=== PATIENT | female | born 1950 | race African-American/Black ===

== ENCOUNTER 2020-09-13 16:25 | Inpatient (IN) | payer MEDICARE, MEDICAID, SELFPAY ==
[2020-09-13] VITALS (16 sets, daily range): BP systolic 114–152; BP diastolic 74–120; PULSE 78–88; RESP 16–27; TEMP 36.7–36.9; O2SAT 88–100
--- NOTE | ~2020-09-13 | US_ITS ---
EXAMINATION: US venous doppler [facility] DATE: 09/14/2020 13:40 INDICATION: Pulmonary embolism TECHNIQUE: Grayscale ultrasound images without and with compression and Doppler ultrasound images of the bilateral lower extremity veins were obtained. COMPARISON: None. FINDINGS: The visualized portions of right common femoral vein, profunda (deep) femoral vein, femoral vein, pop liteal vein, posterior tibial veins, peroneal veins, gastrocnemius vein and greater saphenous vein ou tflow are patent. The visualized portions of left common femoral vein, profunda femoral vein, femoral vein, popliteal v ein, posterior tibial veins, peroneal veins, gastrocnemius vein and greater saphenous vein outflow ar e patent. IMPRESSION: 1. No deep venous thrombosis in either lower limb. Reviewed, dictated and finalized at location A. [employer]
--- NOTE | ~2020-09-13 | XR_ITS ---
XR chest 1V portable DATE: 09/13/2020 17:04 INDICATION: Shortness of breath TECHNIQUE: Portable AP chest on 09/13/2020 at 1659 hours COMPARISON: 02/15/2018 AP chest FINDINGS: Normal heart size. There is aortic arch calcification. No pulmonary vascular congestion or pleural effusion or pneumothorax. Mild infiltrate or atelectasis is suggested in both lower lung zones. Diffuse idiopathic skeletal hyperostosis of the thoracic spine. IMPRESSION: Mild infiltrate or atelectasis in the lower lung zones Reviewed, dictated and finalized at location A. [employer]
--- NOTE | ~2020-09-13 | CT_ITS ---
EXAMINATION: CTA chest PE protocol DATE: 09/13/2020 18:08 INDICATION: Low oxygen saturation. Shortness of breath. TECHNIQUE: Computed tomography angiography (CTA) of the chest was performed with 100 mL Omnipaque-350 intravenous contrast timed to evaluate the pulmonary arteries. Coronal maximum intensity projection 3D-reconstructions were created by the technologist. Automated exposure control and iterative reconst ruction technique were employed. Exam dose: 751.39 mGy-cm total exam DLP. COMPARISON: 09/13/2020 portable AP chest FINDINGS: There is diagnostic contrast enhancement of the pulmonary arteries. Some intraluminal filling defects consistent with pulmonary emboli are identified in the right lower lobe and right upper lobe. The peripheral pulmonary arteries are not optimally evaluated due to motio n. No thoracic aortic aneurysm or dissection. Normal heart size. No pericardial or pleural effusion. No hilar or mediastinal mass lesion. Mild bilateral hilar lymph node prominence is likely reactive. N o mediastinal lymphadenopathy. Mild patchy infiltrate and/atelectasis is noted in the lower lobes and left upper lobe primarily. Status post cholecystectomy. Degenerative changes of the thoracic spine. IMPRESSION: Right upper and lower lobe pulmonary emboli Nonspecific mild patchy bilateral pulmonary infiltrates Reviewed, dictated and finalized at Location [facility]. Reviewed, dictated and finalized at location A. OP ENGINEER
--- NOTE | 2020-09-13 16:31 | ECG_ITS ---
Measurements Intervals [place] Rate: 79 P: NE: 0 QRS: -13 QRSD: 82 T: 73 QT: 396 QTc: 456 Interpretive Statements SINUS RHYTHM LOW QRS VOLTAGE IN PRECORDIAL LEADS BASELINE ARTIFACT- I, II, III, AVR, AVL, AVF, V1-V6 BORDERLINE ECG Electronically Signed On 09-14-2020 8:19:53 STAMP PAD FINISHER by Alfred Fallon D.O.
[2020-09-13 16:51] LABS: Basophils Percent Auto 0.3 % (0.2-1.2); Eosinophils Percent Auto 0.3 % (0-4.4); Hematocrit 33.3 % (37.0-47.0); Hemoglobin 11.8 g/dL (12.0-15.0); Immature Granulocyte Absolute 0.03 K/mm3 (0.00-0.031); Immature Granulocyte Percent A 0.5 % (0-0.5); Lymphocytes Absolute Auto 2.65 K/mm3 (0.9-3.2); Lymphocytes Percent Auto 42.9 % (18.3-44.2); Mean Corpuscular HGB Conc 35.4 g/dl (32-36); Mean Corpuscular Hemoglobin 29.3 pg (26-34); Mean Corpuscular Volume 82.6 fl (80-100); Mean Platelet Volume 9.9 fl (7.4-10.4); Monocytes Absolute Auto 0.6 K/mm3 (0.1-0.6); Monocytes Percent Auto 9.2 % (2.6-8.5); Neutrophils Absolute Auto 2.9 K/mm3 (1.3-6.7); Neutrophils Percent Auto 46.8 % (45.5-73.1); Platelet Count Result 260 k/mm3 (150-375); Red Blood Count 4.03 M/mm3 (4.2-5.4); Red Cell Distribution Width 13.8 % (11.5-14.5); White Blood Count 6.2 K/mm3 (4.5-10.0)
--- NOTE | 2020-09-13 16:54 | ED.SOB ---
HPI - SOB/Dyspnea General Chief Complaint: Shortness of Breath/Dyspnea Stated Complaint: sob, covid + Time Seen by Provider: 09/13/20 16:45 Source: EMS Mode of arrival: EMS Limitations: dementia History of Present Illness HPI Narrative: PAtient is a 69 year old female who presents for evaluation of low oxygen saturation. Patient tested positive for COVID 08/26/20. EMS reports patient's oxygen saturation was 70% on room air. Patient is oriented to person but unable to give history. EMS reports this is her baseline. Related Data Home Medications Medication Instructions Recorded Confirmed acetaminophen 650 mg PO Q4H PRN MDD 3000 09/13/20 09/14/20 divalproex 250 mg PO BID 09/13/20 09/13/20 docusate sodium 100 mg PO DAILY 09/13/20 09/13/20 donepezil 10 mg PO HS 09/13/20 09/13/20 ergocalciferol (vitamin D2) 1,250 mcg PO WEEKLY 09/13/20 09/13/20 lisinopril-hydrochlorothiazide 1 tablet PO DAILY 09/13/20 09/13/20 melatonin 3 mg PO HS 09/13/20 09/13/20 memantine 21 mg PO DAILY 09/13/20 09/13/20 olanzapine 5 mg PO HS 09/13/20 09/13/20 ondansetron 4 mg PO Q4H PRN 09/13/20 09/13/20 potassium chloride 10 meq PO DAILY 09/13/20 09/13/20 sertraline 25 mg PO DAILY 09/13/20 09/13/20 tramadol 50 mg PO DAILY 09/13/20 09/13/20 vitamin B complex [B 1 tablet PO DAILY 09/13/20 09/13/20 Complex-Vitamin B12] Allergies Allergy/AdvReac Type Severity Reaction Status Date / Time atropine Allergy Unknown Unknown Verified 09/13/20 22:27 hyoscyamine Allergy Unknown Unknown Verified 09/13/20 22:27 phenobarbital Allergy Unknown Unknown Verified 09/13/20 22:27 scopolamine Allergy Unknown Unknown Verified 09/13/20 22:27 Review of Systems Review of Systems: ROS unobtainable: Yes unobtainable due to medical condition PMFSH Past Medical History Medical History (Updated 09/14/20 @ 18:23 by Kori Wharton MD) Dementia Depression Hyperlipidemia Hypertension Seizure Surgical History Surgical History Surgical history unknown Social History Social History (Updated 09/13/20 @ 22:20 by Zulma Cleveland NP) Social History: patient is single and it is reported that the patient has no children. Her next of kin listed as a contact lens technician Rachel and VAMSHI Gaines. Smoking status: Never smoker Alcohol intake: never Substance use: never Gender identity (if verbalized by the patient): Female Spiritual care concerns: No Exam Const: General: no acute distress, alert and ill appearing HENMT: Head: normocephalic and atraumatic Face and sinus: face symmetric Eyes: EOM: EOMs intact bilaterally Resp: Effort & Inspection: normal respiratory effort and no retractions Auscultation: clear to auscultation bilaterally Cardio: Rate: regular rate Rhythm: regular rhythm Heart sounds: no murmurs GI: GI Palp: Yes Soft to palpation, No Tenderness to palpation present (GI) and No Guarding due to palpation present (GI) Auscultation: normal bowel sounds Neuro: General: moves all extremities Psych: Mental Status: mental status grossly normal Affect: normal affect Course Consultations Consultation #1: I discussed case with Zulma Cleveland who accepts admission for PE Date: 09/13/20 Time: 18:00 Vital Signs Vital signs: Vital Signs Temperature 98.4 F 09/13/20 16:25 Pulse Rate 79 09/13/20 16:25 Respiratory Rate 17 09/13/20 16:25 Pulse Oximetry 88 L 09/13/20 16:25 Temperature 97.3 F L 09/14/20 16:00 Pulse Rate 78 09/14/20 16:00 Respiratory Rate 20 09/14/20 16:00 Blood Pressure 122/82 09/14/20 16:00 Pulse Oximetry 100 09/14/20 16:00 MDM - SOB/Dyspnea Lab Data Attestation: I reviewed the patient's lab results. Result diagrams: 09/14/20 06:11 09/14/20 06:11 Labs: Lab Results 09/13/20 09/13/20 09/13/20 Range/Units 16:45 16:45 16:45 WBC 6.2 (4.5-10.0) K/mm3 RBC 4.03 L (4.2-5.4) M/mm3
[2020-09-13 17:04] LABS: Anion Gap 4 mmol/L (8-16); Blood Urea Nitrogen 21 mg/dL (7-17); Calcium 9.5 mg/dL (8.4-10.2); Carbon Dioxide 31 mmol/L (22-30); Chloride 106 mmol/L (98-107); Estimated CRCL calculation 54 ml/min; Estimated Glomerular Filt Rate > 60; Glucose 99 mg/dL (65-105); Potassium 3.3 mmol/L (3.4-5.0); Sodium 141 mmol/L (137-145)
[2020-09-13 17:09] LABS: Partial Thromboplastin Time 20.2 SECONDS (22.3-36.8); Prothrombin Time 14.2 Seconds (11.1-14.7)
[2020-09-13 17:22] LABS: Alveolar/Arterial O2 Gradient 126.9 mmHg; Base Excess ABG 4.6 mEq/l (+/-2.0); Carboxyhemoglobin 0.3 % THb (0-2.0); Fractional Inspired Oxygen 28 %; HCO3 ABG 23.9 mEq/l (22.0-26.0); Methemoglobin ABG 0.2 %THb (0-1.5); Oxygen Content ABG 15.2 %vol (16.0-22.0); Oxygen Saturation ABG 91.7 % (95.0-100.0); Oxyhemoglobin 88.8 % THb (90.0-100.0); PO2 FiO2 Ratio Arterial Blood 1.68 %; Reduced Hemoglobin 10.7 %THb (0-5.0); Total Hemoglobin 12.2 g/dL (12.0-18.0)
[2020-09-13 17:24] LABS: Device NASAL CANNULA; PCO2 ABG 21.8 mmHg (35.0-45.0); Site Drawn RIGHT BRACHIAL; pH ABG 7.658 (7.350-7.450)
[2020-09-13 17:40] LABS: Alanine Aminotransferase 26 U/L (4-35); Alkaline Phosphatase 97 U/L (38-126); Aspartate Amino Transferase 40 U/L (14-36); Bilirubin,Total 0.4 mg/dL (0.2-1.3); Lactic Acid Reflex 2.5 mmol/L (0.7-2.1)
[2020-09-13 17:52] LABS: NT Pro B Type Natriuretic Pept 117 PG/ML (5-100); Troponin I < 0.012 ng/mL (0.000-0.034)
--- NOTE | 2020-09-13 18:22 | PC.NURSE ---
spoke with rosie sanders related to permission for ct scan with contrast. denied allergy and stated, that the pt can tolerate it.
[2020-09-13 18:43] LABS: Glucose Point of Care 69 (65-105)
[2020-09-13] MEDS: DEXTROSE 50% 25 GM/50 ML SYRINGE (18:51)
[2020-09-13 18:52] LABS: Add Urine Microscopic? YES; Appearance Urine Clear (Clear); Bilirubin Urine Negative (Negative); Blood Urine Negative (Negative); Color Urine Straw (Yellow); Glucose Urine UA Negative (Negative); Ketones Urine Negative (Negative); Leukocyte Esterase Ur Negative LEU/UL (Negative); Mucus Urine Rare /lpf; Nitrate Urine Negative (Negative); Protein Urine 1+ mg/dL (Negative); Specific Grav Ur > 1.060 (1.001-1.035); WBC Urine 0-3 /hpf
[2020-09-13] MEDS: ENOXAPARIN 100 MG/ML SYRINGE 85 MG SUB-Q (19:01)
[2020-09-13 20:25] LABS: Reflex Lactic Acid Yes or No Add Lactic
[2020-09-13 21:03] LABS: Lactic Acid 2.2 mmol/L (0.7-2.1)
--- NOTE | 2020-09-13 21:58 | PC.NURSE ---
This patient, Patti Gaines, was admitted to [facility] S[facility] Room 310-01. Patient/family oriented to hospital policies and general routines including ID bracelet, bed and alarms, visiting hours, pain management, procedures, bathroom and other care routines, personal items, smoking policy, room service/diet, and visiting hours. Information on how to activate the Rapid Response Team has been discussed. Patient/Family are encouraged to report perceived risks to care and to ask questions if they do not understand what they are told or what they should do.
--- NOTE | 2020-09-13 22:03 | PM.IMHP ---
H&P: HPI History of Present Illness Date/Time: 09/13/20 22:03 Chief Complaint: Hypoxia Narrative: Patti Gaines is a 69 year old female who is from [facility]. Patient is unable to give any medical history. The patient came to emergency room to be to be evaluated from oxygen level. Patient tested positive for COVID on 08/26/2020. Patient's oxygen level dropped down to 70 on room air today. She is only oriented to person and unable to give any history. When I entered the room the patient was singing and was not answering any questions. She does have a history of dementia and psychosis. Today her H&H is 10.8 and 33.3. Right upper lower lobe pulmonary emboli. Nonspecific mild patchy bilateral pulmonary. Chest x-ray was read as mild infiltrate or atelectasis in the lower lung zones. For the PE. She is also given D50 as her blood sugar was 69. Lactic acid 2.5 and 2.2. Potassium 3.3. Status on date of service of 09/13/2019 Review of Systems Review of Systems: Narrative: The patient is pleasantly seeing and is not answering questions. ROS unobtainable: Yes unobtainable due to mental status Constitutional: Constitutional: Reports as per HPI and Reports no additional constitutional complaints Eyes: Eyes: Reports as per HPI and Reports no additional eye complaints ENT: Reports system reviewed and no additional complaints, except as documented and Reports Normal hearing present Cardiovascular: Cardiovascular: Reports no additional cardiovascular complaints Respiratory: Respiratory: Reports no additional respiratory complaints and Reports no additional respiratory complaints Gastrointestinal: Gastrointestinal: Reports as per HPI Integumentary/Breasts: Skin/Breast: Reports as per HPI Neurologic: Reports as per HPI and Reports Normal hearing present Psychiatric: Psychiatric: Reports as per HPI Endocrine: Endocrine: Reports no additional endocrine complaints Hematologic/Lymphatic: Hematologic/Lymphatic: Reports no additional hematologic/lymphatic complaints Allergic/Immunologic: Allergic/Immunologic: Reports no additional allergic/immunologic complaints [facility] Past Medical History Medical History (Updated 09/13/20 @ 22:51 by Zulma Cleveland NP) Dementia Depression Hyperlipidemia Hypertension Seizure Surgical History Surgical History Surgical history unknown Social History Social History (Updated 09/13/20 @ 22:20 by Zulma Cleveland NP) Social History: patient is single and it is reported that the patient has no children. Her next of kin listed as a contact lens technician Rachel and VAMSHI Gaines. Smoking status: Never smoker Alcohol intake: never Substance use: never Gender identity (if verbalized by the patient): Female Spiritual care concerns: No Meds Home Medications and Allergies Home Medications Medication Instructions Recorded Confirmed Type acetaminophen 325 mg PO Q4H PRN MDD 3000 09/13/20 09/13/20 History divalproex 250 mg PO BID 09/13/20 09/13/20 History docusate sodium 100 mg PO DAILY 09/13/20 09/13/20 History donepezil 10 mg PO HS 09/13/20 09/13/20 History ergocalciferol (vitamin D2) 1,250 mcg PO WEEKLY 09/13/20 09/13/20 History lisinopril-hydrochlorothiazide 1 tablet PO DAILY 09/13/20 09/13/20 History melatonin 3 mg PO HS 09/13/20 09/13/20 History memantine 21 mg PO DAILY 09/13/20 09/13/20 History olanzapine 5 mg PO HS 09/13/20 09/13/20 History ondansetron 4 mg PO Q4H PRN 09/13/20 09/13/20 History potassium chloride 10 meq PO DAILY 09/13/20 09/13/20 History sertraline 25 mg PO DAILY 09/13/20 09/13/20 History tramadol 50 mg PO DAILY 09/13/20 09/13/20 History vitamin B complex [B 1 tablet PO DAILY 09/13/20 09/13/20 History Complex-Vitamin B12] Allergies Allergy/AdvReac Type Severity Reaction Status Date / Time atropine Allergy Unknown Unknown Verified 09/13/20 22:27 hyoscyamine Allergy Unknown Unknown Verif
[2020-09-13] MEDS: MELATONIN 3 MG TABLET PO (23:32)
[2020-09-13] MEDS: DONEPEZIL HCL 10 MG TABLET PO (23:32)
[2020-09-13] MEDS: POTASSIUM CHLORIDE 20 MEQ PACKET (FOR LIQUID) PO (23:40)
[2020-09-13 23:52] LABS: Glucose Point of Care 79 (65-105)
[2020-09-14] VITALS (10 sets, daily range): BP systolic 112–142; BP diastolic 60–107; PULSE 58–131; RESP 12–20; TEMP 36–36.7; O2SAT 93–100
[2020-09-14] MEDS: ENOXAPARIN 100 MG/ML SYRINGE 85 MG SUB-Q (06:08)
[2020-09-14 06:27] LABS: Glucose Point of Care 122 (65-105)
[2020-09-14 06:42] LABS: Basophils Percent Auto 0.3 % (0.2-1.2); Eosinophils Percent Auto 0.3 % (0-4.4); Hemoglobin 11.4 g/dL (12.0-15.0); Immature Granulocyte Absolute 0.04 K/mm3 (0.00-0.031); Immature Granulocyte Percent A 0.7 % (0-0.5); Lymphocytes Absolute Auto 2.63 K/mm3 (0.9-3.2); Lymphocytes Percent Auto 43.6 % (18.3-44.2); Mean Corpuscular HGB Conc 35.6 g/dl (32-36); Mean Corpuscular Hemoglobin 29.5 pg (26-34); Mean Corpuscular Volume 82.9 fl (80-100); Mean Platelet Volume 10.5 fl (7.4-10.4); Monocytes Absolute Auto 0.6 K/mm3 (0.1-0.6); Monocytes Percent Auto 10.4 % (2.6-8.5); Neutrophils Absolute Auto 2.7 K/mm3 (1.3-6.7); Neutrophils Percent Auto 44.7 % (45.5-73.1); Platelet Count Result 229 k/mm3 (150-375); Red Blood Count 3.86 M/mm3 (4.2-5.4)
[2020-09-14 07:12] LABS: Anion Gap 1 mmol/L (8-16); Blood Urea Nitrogen 19 mg/dL (7-17); Carbon Dioxide 31 mmol/L (22-30); Chloride 108 mmol/L (98-107); Estimated CRCL calculation 49 ml/min; Estimated Glomerular Filt Rate > 60; Glucose 100 mg/dL (65-105); Magnesium 1.9 mg/dL (1.6-2.3); Sodium 140 mmol/L (137-145)
[2020-09-14] MEDS: DIVALPROEX SODIUM 250 MG TABEC PO ×2 (10:15→17:47)
[2020-09-14] MEDS: lisinopriL 20 MG TABLET PO (10:15)
[2020-09-14] MEDS: MEMANTINE HCL XR 7 MG CAP 21 MG PO (10:15)
[2020-09-14] MEDS: DOCUSATE SODIUM 100 MG CAPSULE PO (10:16)
[2020-09-14] MEDS: VITAMIN B COMPLEX CAPSULE 1 CAP PO (10:16)
[2020-09-14] MEDS: traMADol HCL (*CRX) 50 MG TABLET PO (10:16)
[2020-09-14] MEDS: POTASSIUM CHLORIDE 10 MEQ TABLET.ER PO (10:16)
[2020-09-14] MEDS: SERTRALINE HCL 25 MG TABLET PO (10:16)
[2020-09-14] MEDS: hydroCHLOROthiazide 12.5 MG CAPSULE PO (10:16)
[2020-09-14] MEDS: FUROSEMIDE INJ 40 MG/4 ML VIAL IV PUSH (10:18)
--- NOTE | 2020-09-14 13:06 | PM.IMPN ---
Progress Note: A&P Assessment and Plan (1) Pulmonary emboli: Code(s): I26.99 - Other pulmonary embolism without acute cor pulmonale Status: Acute Assessment and Plan: Evidence of right upper and lower lobe PE on CTA; no evidence on heart strain on CTA imaging and negative trop and minimally elevated BNP. Patient was started on therapeutic Lovenox from the ED. Hypoxic on arrival, now tolerating RA. LE venous Doppler negative for DVT Will transition to Elquis tonight. Eliquis 10 mg BID x 7 days, then 5 mg BID thereafter If tolerating RA for 24 hours, likely discharge back to [place] for further care tomorrow Monitor overnight She will need follow up with PCP (2) Depression: Code(s): F32.9 - Major depressive disorder, single episode, unspecified Status: Chronic Assessment and Plan: Continue with sertraline. (3) Seizure: Code(s): R56.9 - Unspecified convulsions Status: Chronic Assessment and Plan: No acute issues Continue home medication (4) Hypertension: Code(s): I10 - Essential (primary) hypertension Status: Chronic Assessment and Plan: BP 110s sys Continue home antihypertensives (5) Hyperlipidemia: Code(s): E78.5 - Hyperlipidemia, unspecified Status: Chronic Assessment and Plan: Continue with home medication (6) Dementia: Code(s): F03.90 - Unspecified dementia without behavioral disturbance Status: Chronic Assessment and Plan: Appears at baseline Continue with home medications Subjective Date/time seen: 09/14/20 13:06 Interval history: Patient is a 69 yo F with history of dementia, HTN, and seizure disorder who is seen in follow up for PE. Patient is alert and oriented to herself for me today; per Triage note, baseline is A&Ox0. She provides little to no input in her current symptoms, but when questioned, she denies SOB or chest pain. Nursing reports patient recently weaned to RA today and has been tolerating this okay. Further history unobtainable from patient. Review of Systems Review of Systems: ROS unobtainable: Yes unobtainable due to mental status Exam Narrative: Exam Narrative: General: Patient resting supine in bed in no acute distress. HEENT: Normocephalic, EOMI, oral mucosa moist. Cardiovascular: Rate and rhythm are regular. No notable murmur, rub, or gallop. Tele shows normal sinus rhythm, occasional PVCs vs artifact appreciated. Respiratory: Lungs clear to auscultation anterolateral lung blount. Non-labored breathing. Sat 100% on RA at time of visit Abdomen: Soft, non-tender, non-distended, bowel sounds present. Extremities: Peripheral pulses intact. No edema. NTTP b/l calves Neuro: No focal neurological deficits. Speech is clear. Objective Data Vital Signs Vital Signs: Last Vital Signs Temp 97.0 F L 09/14/20 12:00 Pulse 64 09/14/20 12:57 Resp 16 09/14/20 12:57 BP 117/69 09/14/20 12:00 Pulse Ox 100 09/14/20 12:57 Intake/Output Intake/Output: Intake & Output 09/11/20 09/12/20 09/13/20 09/14/20 23:59 23:59 23:59 23:59 Intake Total 1000 Balance 1000 Meds/Results Medications: Active Medications Generic Name Dose Route Start Last Admin Trade Name Freq PRN Reason Stop Dose Admin Acetaminophen 650 mg 09/13/20 22:55 Acetaminophen 325 Mg Tablet PO Q4H PRN Fever Or Pain Albuterol 6 puff 09/13/20 18:52 Albuterol Sulfate (*Sp) Aerosol 1 Puff INHALATION QIDRT PRN Shortness Of Breath Apixaban 10 mg 09/14/20 21:00 Apixaban 5 Mg Tablet PO 09/21/20 09:01 Q12HR KINSEY Apixaban 5 mg 09/21/20 21:00 Apixaban 5 Mg Tablet PO Q12HR KINSEY Dextrose 12.5 gm 09/13/20 18:59 Dextro
[2020-09-14] MEDS: DONEPEZIL HCL 10 MG TABLET PO (21:18)
[2020-09-14] MEDS: MELATONIN 3 MG TABLET PO (21:18)
[2020-09-14] MEDS: APIXABAN 5 MG TABLET 10 MG PO (21:18)
[2020-09-14 22:09] LABS: Glucose Point of Care 109 (65-105)
[2020-09-15 00:05] VITALS: BP 100/53; PULSE 100; RESP 20; TEMP 36.3; O2SAT 96
[2020-09-15 04:00] VITALS: BP 116/69; PULSE 65; RESP 18; TEMP 36.4; O2SAT 100
[2020-09-15 06:36] LABS: Hemoglobin 12.1 g/dL (12.0-15.0); Mean Corpuscular HGB Conc 34.6 g/dl (32-36); Mean Corpuscular Hemoglobin 28.9 pg (26-34); Mean Corpuscular Volume 83.7 fl (80-100); Mean Platelet Volume 10.1 fl (7.4-10.4); Platelet Count Result 252 k/mm3 (150-375); Red Blood Count 4.18 M/mm3 (4.2-5.4); Red Cell Distribution Width 14.3 % (11.5-14.5); White Blood Count 4.4 K/mm3 (4.5-10.0)
[2020-09-15 06:45] LABS: Anion Gap 5 mmol/L (8-16); Blood Urea Nitrogen 22 mg/dL (7-17); Carbon Dioxide 35 mmol/L (22-30); Chloride 107 mmol/L (98-107); Estimated CRCL calculation 45 ml/min; Estimated Glomerular Filt Rate 59; Glucose 103 mg/dL (65-105); Potassium 3.2 mmol/L (3.4-5.0); Sodium 147 mmol/L (137-145)
[2020-09-15 08:00] VITALS: BP 113/84; PULSE 65; PULSE 85; RESP 16; RESP 18; TEMP 36.4; O2SAT 100; O2SAT 95
[2020-09-15 08:43] LABS: Glucose Point of Care 100 (65-105)
[2020-09-15] MEDS: POTASSIUM CHLORIDE 10 MEQ TABLET.ER PO (09:22)
[2020-09-15] MEDS: DOCUSATE SODIUM 100 MG CAPSULE PO (09:22)
[2020-09-15] MEDS: VITAMIN B COMPLEX CAPSULE 1 CAP PO (09:22)
[2020-09-15] MEDS: APIXABAN 5 MG TABLET 10 MG PO (09:22)
[2020-09-15] MEDS: MEMANTINE HCL XR 7 MG CAP 21 MG PO (09:22)
[2020-09-15] MEDS: SERTRALINE HCL 25 MG TABLET PO (09:22)
[2020-09-15] MEDS: lisinopriL 20 MG TABLET PO (09:23)
[2020-09-15] MEDS: hydroCHLOROthiazide 12.5 MG CAPSULE PO (09:23)
[2020-09-15] MEDS: DIVALPROEX SODIUM 250 MG TABEC PO (09:24)
[2020-09-15] MEDS: traMADol HCL (*CRX) 50 MG TABLET PO (09:46)
[2020-09-15] MEDS: POTASSIUM CHLORIDE 20 MEQ PACKET (FOR LIQUID) PO (09:46)
[2020-09-15 12:00] VITALS: BP 111/88; PULSE 103; RESP 18; TEMP 36.6; O2SAT 96
--- NOTE | 2020-09-15 12:34 | PM.DS ---
DS: Admitting Diagnosis Admitting Diagnosis Admitting Diagnosis: Multiple PEs, hypoxia DS: Discharge Diagnosis Discharge Diagnosis (1) Pulmonary emboli: Code(s): I26.99 - Other pulmonary embolism without acute cor pulmonale Status: Acute Assessment and Plan: Evidence of right upper and lower lobe PE on CTA; no evidence on heart strain on CTA imaging and negative trop and minimally elevated BNP; Echo not indicated for above reasons. Patient was started on therapeutic Lovenox from the ED. Hypoxic on arrival, now tolerating RA for 24 hours. LE venous Doppler negative for DVT Continue Eliquis 10 mg BID x 7 days, then 5 mg BID thereafter discharge today F/u with PCP for further management (2) Depression: Code(s): F32.9 - Major depressive disorder, single episode, unspecified Status: Chronic Assessment and Plan: Continue with sertraline. (3) Seizure: Code(s): R56.9 - Unspecified convulsions Status: Chronic Assessment and Plan: No acute issues Continue home medication (4) Hypertension: Code(s): I10 - Essential (primary) hypertension Status: Chronic Assessment and Plan: BP 110s sys Continue home antihypertensives (5) Hyperlipidemia: Code(s): E78.5 - Hyperlipidemia, unspecified Status: Chronic Assessment and Plan: Continue with home medication (6) Dementia: Code(s): F03.90 - Unspecified dementia without behavioral disturbance Status: Chronic Assessment and Plan: Appears at baseline Continue with home medications DS: Summary Hospital Course Reason for hospitalization: Multiple PEs, hypoxia Hospital Course: Date of arrival: 09/13/20 Date of discharge: 09/15/20 Patient is a 69 yo F with a history of dementia, depression, seizure disorder, and HTN who presented to the ED from [facility] on 09/13 with reports of hypoxia on RA. EMS reports patient oxygen saturation was 70% on RA. She was placed on 15 L NRB mask en route to ED. She reportedly is A&Ox0 at baseline thus was not able to give any information. While in the ED, she as mildly hypoxic on RA and was placed on 2L O2 via NC. ABG was found to have pH of 7.658, pCO2 21.8, pO2 47.0, O2 sat 91.7%, with reduced Hgb 10.7%. CTA chest was performed and found evidence of right upper and lower lobe pulmonary emboli. Troponin level negative and BNP minimally elevated. She was started on therapeutic Lovenox in the ED. Patient admitted under this setting of multiple PEs. Please see H&P for further details. Patient was admitted to the hospitalist service for further management/treatment. She was transitioned to PO Eliquis on evening of 09/14. She was to do 10 mg Q12h for 7 days, then 5 mg Q12h thereafter. Given no evidence of right heart strain on CTA imaging, and negative troponin and essentially normal BNP, it was felt that Echo was not indicated at this time to further evaluate for heart strain. She was weaned to RA on 09/14 and continued to maintain adequate O2 sats for 24 hours. She had mild hypokalemia during her stay, which was replaced; she was to obtain BMP on 09/18 for further monitoring. Plan was for her to be discharged back to [place] for further care. Patient hemodynamically stable and in improved condition for discharge on 09/15 Status at Discharge Overall status at discharge: patient is progressing back to baseline Time Spent with Patient Time attestation: Total time spent providing and/or coordinating discharge services: Time spent: Greater than 30 minutes Exam Narrative: Exam Narrative: General: Patient resting supine in bed in no acute distress. HEENT: Normocephalic, EOMI, oral mucosa moist. Cardiovascular:
== END 2020-09-15 16:10 | DRG 176 ==
LOC: ANHED 19:04 → ANH3MEDSUR 09-14 07:05
PROVIDERS: Nurse Practitioner; Admitting Provider Internal Medicine; Emergency Provider General Practice; PCP Family Medicine; Visit Provider Physician Assistant
DX: I26.99 Other pulmonary embolism without acute cor pulmonale (principal); B94.8 Sequelae of other specified infectious and parasitic diseases; F32.9 Major depressive disorder, single episode, unspecified; F03.90 Unspecified dementia, unspecified severity, without behavioral disturbance, psychotic disturbance, mood disturbance, and anxiety; E78.5 Hyperlipidemia, unspecified; G40.909 Epilepsy, unspecified, not intractable, without status epilepticus; I10 Essential (primary) hypertension
CPT/HCPCS: 36415; 36600; 71045; 71275; 80048; 80076; 81001; 82375; 82728; 82805; 82948; 83050; 83605; 83735; 83880; 84443; 84484; 85025; 85027; 85610; 85730; 93005; 93970; 96372; 96374; 99291; A9270; J1650; J1940; J3480; Q9967

== ENCOUNTER 2020-09-17 09:50 | Emergency (ER) | payer MEDICARE, MEDICAID, SELFPAY ==
[2020-09-17] VITALS (46 sets, daily range): BP systolic 85–192; BP diastolic 46–175; PULSE 73–116; RESP 11–28; TEMP 36.1; O2SAT 95–100
--- NOTE | ~2020-09-17 | XR_ITS ---
XR chest 1V portable DATE: 09/17/2020 10:29 INDICATION: Shortness of breath. Pulmonary emboli. Transient alteration of awareness. TECHNIQUE: Portable upright AP chest on September 17, 2020 at 1031 hours COMPARISON: 09/13/2020 CT pulmonary scan FINDINGS: Normal heart size. No pulmonary infiltrate or consolidation, pleural effusion or pulmonary vascular congestion or pneumothorax is evident. Degenerative spurring of the thoracic spine. IMPRESSION: No active cardiac pulmonary disease Recent demonstration of right upper and lower lobe pulmonary emboli on 09/13/2020 CT pulmonary scan Reviewed, dictated and finalized at location A. I MAKER IMPRESSION: No active cardiac pulmonary disease Recent demonstration of right upper and lower lobe pulmonary emboli on CT pulmonary scan
--- NOTE | ~2020-09-17 | CT_ITS ---
EXAMINATION: CT brain wo con EXAM DATE: 09/17/2020 12:46 INDICATION: Change in behavior, transient alteration of awareness. TECHNIQUE: Spiral CT of the head was performed without contrast. Axial, coronal and sagittal images were reviewed. The dose-length product (DLP) for this examination was 605.33 mGy-cm. The exposure w as tailored according to patient size, and iterative reconstruction (ASIR) was used as additional dos e reduction technique. Comparison is made to prior examination from 02/15/2018. FINDINGS: There is no acute intraparenchymal hemorrhage. No evidence of intraparenchymal brain mass lesion. No evidence of acute infarction. Please note that initial head CT has limited sensitivity f or small or acute infarctions. There is moderate periventricular and subcortical hypodensity, nonspec ific but probably related to small vessel ischemic disease. There is moderate prominence of the sul ci and ventricles related to cerebral atrophy. There is intracranial carotid arteriosclerosis. The re are no extra-axial collections. There is no mass effect or midline shift. The orbits are unremar kable. Soft tissue is unremarkable. The visualized sinuses and mastoid air cells are well aerated. There is hyperostosis frontalis. IMPRESSION: 1. No acute intracranial findings. 2. Chronic age related findings. Reviewed, dictated and finalized at location B. UCTION PROOFREADER
--- NOTE | ~2020-09-17 | CT_ITS ---
EXAMINATION: CTA chest PE protocol DATE: 09/17/2020 15:43 DROSS PULLER INDICATION: Low oxygen saturations. TECHNIQUE: Computed tomographic angiography (CTA) of the chest was performed with 100 mL Omnipaque-35 0 intravenous contrast. The dose-length product was 761.42 mGy-cm. Maximum intensity projection 3D-re constructions of the aorta and other arteries were constructed by the technologist on a separate work station. Automated exposure control and iterative reconstruction technique were employed. COMPARISON: CT dated 09/13/2020 FINDINGS: Study is technically adequate, although limited by motion for evaluation of peripheral pulm onary arteries. No central pulmonary embolism is identified. No significant pleural or pericardial effusion. Mild med iastinal and right hilar lymphadenopathy, likely reactive. Heart size normal. No significant pleural or pericardial effusion. Proved patchy consolidation of the lungs, likely resolving atelectasis and/o r pneumonia. No pneumothorax identified. No endobronchial lesions. No evidence for aortic aneurysm or dissection. Heart size is normal. The upper abdomen is unremarkable. Mild thoracic spondylosis. Ther e are cholecystectomy changes. IMPRESSION: 1. No central pulmonary embolism identified. Respiratory motion limits evaluation for peripheral subs egmental pulmonary embolism. 2: Improved patchy airspace disease, likely resolving atelectasis and/or pneumonia. 3: Mild mediastinal and right hilar lymphadenopathy, likely reactive. Reviewed, dictated and finalized at location A. S PULLER IMPRESSION: 1. No central pulmonary embolism identified. Respiratory motion limits evaluati on for peripheral subsegmental pulmonary embolism. 2: Improved patchy airspace disease, likely resolving atelectasis and/or pneum onia. 3: Mild mediastinal and right hilar lymphadenopathy, likely reactive.
--- NOTE | 2020-09-17 09:55 | ECG_ITS ---
Measurements Intervals [place] Rate: 78 P: 0 LA: 179 QRS: 20 QRSD: 86 T: 60 QT: 385 QTc: 439 Interpretive Statements SINUS RHYTHM LOW QRS VOLTAGE IN PRECORDIAL LEADS BASELINE ARTIFACT- I, II, III, AVR, AVL, AVF, V1-V6 BORDERLINE ECG Electronically Signed On 09-17-2020 10:11:10 DIESEL CRANE OPERATOR by Alfred Fallon D.O.
--- NOTE | 2020-09-17 10:13 | PC.NURSE ---
nrb mask removed. pt manish room air with o2 sat 97-100%
[2020-09-17 10:17] LABS: Alveolar/Arterial O2 Gradient 41.2 mmHg; Base Excess ABG -0.4 mEq/l (+/-2.0); Device ROOM AIR; Fractional Inspired Oxygen 21 %; HCO3 ABG 21.6 mEq/l (22.0-26.0); Modified Allen's Test Pass; Oxygen Content ABG 16.5 %vol (16.0-22.0); Oxygen Saturation ABG 96.4 % (95.0-100.0); Oxyhemoglobin 94.9 % THb (90.0-100.0); PCO2 ABG 27.8 mmHg (35.0-45.0); PO2 ABG 75.2 mmHg (80.0-100.0); PO2 FiO2 Ratio Arterial Blood 3.58 %; Site Drawn RIGHT RADIAL; Total Hemoglobin 12.3 g/dL (12.0-18.0); pH ABG 7.508 (7.350-7.450)
[2020-09-17 10:53] LABS: Glucose Point of Care 93 (65-105)
--- NOTE | 2020-09-17 10:53 | ED.SOB ---
HPI - SOB/Dyspnea General Chief Complaint: Shortness of Breath/Dyspnea Stated Complaint: resp distress Time Seen by Provider: 09/17/20 09:51 Source: EMS Mode of arrival: EMS Limitations: dementia (schizophrenia) History of Present Illness HPI Narrative: Patient s 69 year old female with history of schizophrenia, dementia, recent diagnosis of PEs who presents from [facility] for respiratory distress. EMS reports patient's oxygen saturation was 80% on 3 L in the [facility] so she was placed on NRB. EMS reported patient's oxygen saturation was 90 s on nonrebreather. Patient is unable to given history due to dementia and schizophrenia. She does state yes to shortness of breath but she denies chest pain. she was diagnosed with pulmonary emboli 4 days ago and she was discharged on eliquis. Related Data Home Medications Medication Instructions Recorded Confirmed acetaminophen 650 mg PO Q4H PRN MDD 3000 09/13/20 09/14/20 divalproex 250 mg PO BID 09/13/20 09/13/20 docusate sodium 100 mg PO DAILY 09/13/20 09/13/20 donepezil 10 mg PO HS 09/13/20 09/13/20 ergocalciferol (vitamin D2) 1,250 mcg PO WEEKLY 09/13/20 09/13/20 lisinopril-hydrochlorothiazide 1 tablet PO DAILY 09/13/20 09/13/20 melatonin 3 mg PO HS 09/13/20 09/13/20 memantine 21 mg PO DAILY 09/13/20 09/13/20 olanzapine 5 mg PO HS 09/13/20 09/13/20 ondansetron 4 mg PO Q4H PRN 09/13/20 09/13/20 potassium chloride 10 meq PO DAILY 09/13/20 09/13/20 sertraline 25 mg PO DAILY 09/13/20 09/13/20 tramadol 50 mg PO DAILY 09/13/20 09/13/20 vitamin B complex [B 1 tablet PO DAILY 09/13/20 09/13/20 Complex-Vitamin B12] Allergies Allergy/AdvReac Type Severity Reaction Status Date / Time atropine Allergy Unknown Unknown Verified 09/17/20 10:10 hyoscyamine Allergy Unknown Unknown Verified 09/17/20 10:10 phenobarbital Allergy Unknown Unknown Verified 09/17/20 10:10 scopolamine Allergy Unknown Unknown Verified 09/17/20 10:10 Review of Systems Review of Systems: ROS unobtainable: Yes unobtainable due to medical condition PMFSH Past Medical History Medical History (Updated 09/17/20 @ 15:59 by Kori Wharton MD) Dementia Depression Hyperlipidemia Hypertension Seizure Surgical History Surgical History Surgical history unknown Social History Social History (Updated 09/13/20 @ 22:20 by Zulma Cleveland NP) Social History: patient is single and it is reported that the patient has no children. Her next of kin listed as a contact lens cutter Rachel and VAMSHI Gaines. Smoking status: Never smoker Alcohol intake: never Substance use: never Gender identity (if verbalized by the patient): Female Spiritual care concerns: No Exam Const: General: no acute distress and alert Other: restless Eyes: Pupils: Equal, round and reactive pupils present EOM: EOMs intact bilaterally Resp: Effort & Inspection: normal respiratory effort and no retractions Auscultation: clear to auscultation bilaterally Cardio: Rate: regular rate Rhythm: regular rhythm Heart sounds: no murmurs GI: GI Palp: Yes Soft to palpation, No Tenderness to palpation present (GI) and No Guarding due to palpation present (GI) Auscultation: normal bowel sounds Skin: General skin exam: normal color Rashes: no rashes Neuro: General: moves all extremities and no focal motor deficits Other: patient singing, talking softly like a baby, will follow some commands Psych: Attitude: cooperative Course Reevaluation(s) Reevaluation #1: Patient has not required oxygen at all during ED stay. She is 99% on room air. She appears anxious so she was given ativan. Her mental status is unchanged from when I saw her 4 days ago Date: 09/17/20 Time: 13:53 Consultations Consultation #1: I discussed case with residential Dr. Wheeler . He request a CT scan before discharge back to [facility]. Date: 09/17/20 Time: 13:54 Consultation #2: I di
[2020-09-17 11:03] LABS: Basophils Percent Auto 0.3 % (0.2-1.2); Eosinophils Percent Auto 0.5 % (0-4.4); Hematocrit 34.5 % (37.0-47.0); Immature Granulocyte Absolute 0.03 K/mm3 (0.00-0.031); Immature Granulocyte Percent A 0.5 % (0-0.5); Lymphocytes Absolute Auto 1.86 K/mm3 (0.9-3.2); Lymphocytes Percent Auto 28.9 % (18.3-44.2); Mean Corpuscular HGB Conc 34.8 g/dl (32-36); Mean Corpuscular Hemoglobin 29.5 pg (26-34); Mean Corpuscular Volume 84.8 fl (80-100); Mean Platelet Volume 10.1 fl (7.4-10.4); Monocytes Absolute Auto 0.6 K/mm3 (0.1-0.6); Monocytes Percent Auto 8.5 % (2.6-8.5); Neutrophils Percent Auto 61.3 % (45.5-73.1); Platelet Count Result 251 k/mm3 (150-375); Red Blood Count 4.07 M/mm3 (4.2-5.4); Red Cell Distribution Width 14.6 % (11.5-14.5); White Blood Count 6.4 K/mm3 (4.5-10.0)
[2020-09-17 11:08] LABS: Add Urine Microscopic? YES; Appearance Urine Clear (Clear); Bilirubin Urine Negative (Negative); Blood Urine Negative (Negative); Color Urine Yellow (Yellow); Glucose Urine UA Negative (Negative); Ketones Urine Negative (Negative); Leukocyte Esterase Ur Negative LEU/UL (Negative); Mucus Urine Rare /lpf; Nitrate Urine Negative (Negative); Protein Urine Negative (Negative); Squamous Epithelial Cell Urine Rare /hpf (Few); WBC Urine 0-3 /hpf
[2020-09-17 11:15] LABS: Alanine Aminotransferase 47 U/L (4-35); Albumin Level 4.3 g/dL (3.5-5.1); Alkaline Phosphatase 94 U/L (38-126); Anion Gap 12 mmol/L (8-16); Aspartate Amino Transferase 52 U/L (14-36); Bilirubin,Total 0.4 mg/dL (0.2-1.3); Blood Urea Nitrogen 22 mg/dL (7-17); Carbon Dioxide 29 mmol/L (22-30); Chloride 106 mmol/L (98-107); Estimated CRCL calculation 48 ml/min; Estimated Glomerular Filt Rate > 60; Glucose 88 mg/dL (65-105); Magnesium 1.8 mg/dL (1.6-2.3); Potassium 3.6 mmol/L (3.4-5.0); Sodium 147 mmol/L (137-145)
[2020-09-17 11:16] LABS: INR 1.3; Prothrombin Time 17.2 Seconds (11.1-14.7)
[2020-09-17 11:18] LABS: Partial Thromboplastin Time 28.6 SECONDS (22.3-36.8)
[2020-09-17 11:27] LABS: NT Pro B Type Natriuretic Pept 87 PG/ML (5-100); Troponin I < 0.012 ng/mL (0.000-0.034)
--- NOTE | 2020-09-17 11:36 | PC.NURSE ---
spoke with nurse caring for pt at [facility] [place] [place] home. she reports her and dr. ramirez was unable to get o2 sat above 79 prior to ems arrival. nurse reports pt was very anxious and unable to sing like she normally does. this info shared with ed physician
[2020-09-17] MEDS: LORazepam INJ (*CRX) 2 MG/ML VIAL 0.5 MG IV PUSH (11:58)
[2020-09-17] MEDS: SODIUM CHLORIDE 0.9% IV 1,000 ML 999 ML IV CONT (13:30)
--- NOTE | 2020-09-17 13:33 | PC.NURSE ---
resting without distress. drowsy after earlier dose of ativan iv.
--- NOTE | 2020-09-17 14:42 | PC.NURSE ---
pt keeps taking off pulse ox.
--- NOTE | 2020-09-17 18:44 | PC.NURSE ---
called mike 161, eta was [phone], updated at 1821 eta, 2044 - 2099, called kathy [phone], no bls for transfers, called [facility], 183, no trucks available, called [facility] have bls but no guarantee they can be here due to large call volume 911 calls. can call back later if we still need them, or they will call if anything changes.
--- NOTE | 2020-09-17 21:20 | PC.NURSE ---
called [facility] for ETA update. ETA [id number]
--- NOTE | 2020-09-17 23:43 | PC.NURSE ---
spoke with nurse Alicia at [facility] to notify her that the patient is leaving at this time.
== END 2020-09-17 23:40 ==
PROVIDERS: Emergency Provider General Practice; PCP Family Medicine
DX: I26.99 Other pulmonary embolism without acute cor pulmonale (principal); F41.9 Anxiety disorder, unspecified; F03.90 Unspecified dementia, unspecified severity, without behavioral disturbance, psychotic disturbance, mood disturbance, and anxiety; F32.9 Major depressive disorder, single episode, unspecified; E78.5 Hyperlipidemia, unspecified; I10 Essential (primary) hypertension; G40.909 Epilepsy, unspecified, not intractable, without status epilepticus
CPT/HCPCS: 36415; 36600; 51701; 70450; 71045; 71275; 80053; 81001; 82805; 82948; 83735; 83880; 84484; 85025; 85610; 85730; 93005; 96361; 96374; 99284; J2060; J7030; Q9967

== ENCOUNTER 2021-11-27 07:38 | Emergency (ER) | payer OTHER, SELFPAY ==
--- NOTE | ~2021-11-27 | CT_ITS ---
EXAMINATION: CT brain wo con, CT cervical spine wo con EXAM DATE: 11/27/2021 08:30 (accession [id number]), 11/27/2021 08:31 (accession [id number]) INDICATION: head injury head injury. Fall. Possible Seizure. TECHNIQUE: Spiral CT of the head was performed without contrast. Axial, coronal and sagittal images were reviewed. Spiral CT of the cervical spine was performed without contrast. Axial images were rev iewed. Coronal and sagittal reformatted images were also reviewed. The dose-length product (DLP) fo r this examination was 605.33 (accession [id number]), 445.51 (accession [id number]) mGy-cm. The exposure was tailored according to patient size, and iterative reconstruction (ASIR) was used as additional dose reduction technique. Comparison is made to prior examination from 09/17/2020, head CT. Compared to 02/15/[address] FINDINGS: HEAD CT: There is no acute intraparenchymal hemorrhage. No evidence of intraparenchymal brain mass l esion. No evidence of acute infarction. There is moderate periventricular and subcortical hypodensit y, nonspecific but probably related to small vessel ischemic disease. There is moderate prominence of the sulci and ventricles related to cerebral atrophy. There is no mass effect or midline shift. There is no obstructive hydrocephalus suspected. There are no extra-axial collections. There are n o acute calvarial fractures. The orbits are unremarkable. Soft tissue is unremarkable. The visuali zed sinuses and mastoid air cells are well aerated. Hyperostosis frontalis. CERVICAL CT: There is no evidence of acute cervical fracture. The odontoid process is intact. Pre- dens space is normal. Prevertebral soft tissue is normal. There are no soft tissue abnormalities id entified. There is no disc space widening or traumatic vertebral body subluxation suspected. There is moderate multilevel cervical disc disease and moderate endplate osteophytes. Mild to moderate cerv ical arthropathy. A detailed level by level evaluation of spondylosis can be added as addendum if re quested. IMPRESSION: 1. No acute intracranial findings or cervical fracture. 2. Atrophy and microangiopathy. 3. Moderate disc disease. Reviewed, dictated and finalized at location D. IMPRESSION: 1. No acute intracranial findings or cervical fracture. 2. Atrophy and microangiopathy. 3. Moderate disc disease.
--- NOTE | ~2021-11-27 | XR_ITS ---
EXAMINATION: XR chest 1V EXAM DATE: 11/27/2021 08:31 INDICATION: Fall. Nonverbal. TECHNIQUE: Portable AP frontal chest x-ray was obtained. Comparison is made to prior examination from 09/17/2020. FINDINGS: There are cholecystectomy clips. The lungs are clear. There are no pleural effusions. The cardiomediastinal silhouette is within normal limits. There is no pneumothorax suspected. The bone s and soft tissues are unremarkable. IMPRESSION: No acute cardiopulmonary findings. Reviewed, dictated and finalized at location D.
[2021-11-27 07:37] VITALS: BP 118/69; PULSE 61; RESP 14; TEMP 36.8; O2SAT 100
--- NOTE | 2021-11-27 07:50 | ECG_ITS ---
Measurements Intervals [place] Rate: 60 P: 37 IL: 177 QRS: -11 QRSD: 85 T: 31 QT: 416 QTc: 416 Interpretive Statements SINUS RHYTHM LOW QRS VOLTAGE IN PRECORDIAL LEADS [QRS DEFLECTION < 1.0 mV IN CHEST LEADS] PATTERN CONSISTENT WITH PULMONARY DISEASE NONSPECIFIC T-WAVE ABNORMALITY ABNORMAL ECG COMPARED TO ECG 09/17/2020 09:58:29 T-WAVE ABNORMALITY NOW PRESENT Electronically Signed On 11-27-2021 15:46:37 CDT by Raghav Potts M.D.
--- NOTE | 2021-11-27 08:36 | ED.GENADULT ---
HPI - General Adult General Chief complaint: Unspecified Stated complaint: seizure Time Seen by Provider: 11/27/21 07:45 Source: EMS and RN notes reviewed Mode of arrival: EMS Limitations: dementia History of Present Illness HPI narrative: This is a 71 year old female with history of hyperlipidemia, hypertension, dementia, seizure disorder who presents from [facility] rehab for evaluation of possible seizure. Nursing reports EMS found patient in bed at her baseline. EMS reports they were called because a resident told staff she was on the floor and she may have had brief seizure. It is unclear if she had a seizure but she is at baseline. Patient is oriented to self and she is at baseline. She is unable to give history but she will say yes and no. She can follow some commands. She does not appear to have any signs of trauma. Patient does take Eliquis for PE so needs evaluation after a fall. Related Data Home Medications Medication Instructions Recorded Confirmed acetaminophen 650 mg PO Q4H PRN MDD 3000 09/13/20 09/14/20 divalproex 250 mg PO BID 09/13/20 09/13/20 docusate sodium 100 mg PO DAILY 09/13/20 09/13/20 donepezil 10 mg PO HS 09/13/20 09/13/20 ergocalciferol (vitamin D2) 1,250 mcg PO WEEKLY 09/13/20 09/13/20 lisinopril-hydrochlorothiazide 1 tablet PO DAILY 09/13/20 09/13/20 melatonin 3 mg PO HS 09/13/20 09/13/20 memantine 21 mg PO DAILY 09/13/20 09/13/20 olanzapine 5 mg PO HS 09/13/20 09/13/20 ondansetron 4 mg PO Q4H PRN 09/13/20 09/13/20 potassium chloride 10 meq PO DAILY 09/13/20 09/13/20 sertraline 25 mg PO DAILY 09/13/20 09/13/20 tramadol 50 mg PO DAILY 09/13/20 09/13/20 vitamin B complex [B 1 tablet PO DAILY 09/13/20 09/13/20 Complex-Vitamin B12] Allergies Allergy/AdvReac Type Severity Reaction Status Date / Time atropine Allergy Unknown Unknown Verified 09/17/21 11:18 hyoscyamine Allergy Unknown Unknown Verified 09/17/21 11:18 phenobarbital Allergy Unknown Unknown Verified 09/17/21 11:18 scopolamine Allergy Unknown Unknown Verified 09/17/21 11:18 Review of Systems Review of Systems: ROS unobtainable: Yes unobtainable due to medical condition PMFSH Past Medical History Medical History (Updated 11/27/21 @ 10:35 by Kori Wharton MD) Dementia Depression Hyperlipidemia Hypertension Pulmonary emboli Seizure Surgical History Surgical History Surgical history unknown Social History Social History (System 09/17/21 @ 11:18 by [place]) Social History: patient is single and it is reported that the patient has no children. Her next of kin listed as a newsperson Rachel and VAMSHI Gaines. Smoking status: Never smoker Alcohol intake: never Substance use: never Gender identity (if verbalized by the patient): Female Spiritual care concerns: No Exam Narrative: GENERAL:well-nourished, and in no acute distress. HEAD: Normocephalic, atraumatic EYES: PERRLA and EOMI, conjunctiva clear without discharge THROAT:Mucous membranes moist, Oropharynx normal without erythema, exudate, peritonsillar swelling or fluctuance NECK: Supple, without lymphadenopathy or mass RESPIRATORY: No respiratory distress, Airway patent, Respirations non-labored, Clear to auscultation without rales, rhonchi or wheeze HEART: Regular rate and rhythm. No murmur heard. Normal peripheral pulses. ABDOMEN: Soft, nontender, nondistended, normal active bowel sounds. No masses. No rebound or guarding, No organomegaly. EXTREMITIES: No edema, SKIN: Warm, dry, normal color without rash PSYCH: Normal mood and affect. Neuro: General: oriented to person and moves all extremities Cranial nerves: Yes CN's II-XII intact bilaterally and Yes Equal, round and reactive pupils present Course Reevaluation(s) Reevaluation #1: PAtient has not had any events in ER. It is unclear what happened but patient is at baseline. Labs and imaging are unr
[2021-11-27 08:44] LABS: Basophils Percent Auto 0.6 % (0.2-1.2); Eosinophils Percent Auto 0.5 % (0-4.4); Hematocrit 40.8 % (37.0-47.0); Hemoglobin 14.2 g/dL (12.0-15.0); Immature Granulocyte Absolute 0.09 K/mm3 (0.00-0.031); Immature Granulocyte Percent A 1.4 % (0-0.5); Lymphocytes Absolute Auto 1.54 K/mm3 (0.9-3.2); Lymphocytes Percent Auto 23.4 % (18.3-44.2); Mean Corpuscular HGB Conc 34.8 g/dl (32-36); Mean Corpuscular Hemoglobin 29.6 pg (26-34); Mean Platelet Volume 10.4 fl (7.4-10.4); Monocytes Absolute Auto 0.5 K/mm3 (0.1-0.6); Monocytes Percent Auto 7.9 % (2.6-8.5); Neutrophils Absolute Auto 4.4 K/mm3 (1.3-6.7); Neutrophils Percent Auto 66.2 % (45.5-73.1); Platelet Count Result 240 k/mm3 (150-375); White Blood Count 6.6 K/mm3 (4.5-10.0)
[2021-11-27 08:54] LABS: Alanine Aminotransferase 17 U/L (4-35); Albumin Level 4.7 g/dL (3.5-5.1); Alkaline Phosphatase 129 U/L (38-126); Anion Gap 11 mmol/L (8-16); Aspartate Amino Transferase 34 U/L (14-36); Bilirubin,Total 0.3 mg/dL (0.2-1.3); Blood Urea Nitrogen 9 mg/dL (7-17); Calcium 9.4 mg/dL (8.4-10.2); Carbon Dioxide 27 mmol/L (22-30); Chloride 103 mmol/L (98-107); Estimated CRCL calculation 44 ml/min; Estimated Glomerular Filt Rate > 60; Glucose 114 mg/dL (65-110); Potassium 3.6 mmol/L (3.4-5.0); Sodium 141 mmol/L (137-145)
[2021-11-27 09:08] LABS: INR 1.3; Partial Thromboplastin Time 25.7 SECONDS (22.3-36.8); Prothrombin Time 15.3 Seconds (11.1-14.7)
[2021-11-27 09:15] LABS: Valproic Acid 54.7 ug/mL (50-120)
[2021-11-27 10:12] LABS: Appearance Urine Clear (Clear); Bilirubin Urine Negative (Negative); Color Urine Yellow (Yellow); Glucose Urine UA Negative (Negative); Ketones Urine Negative (Negative); Leukocyte Esterase Ur Negative LEU/UL (Negative); Nitrate Urine Negative (Negative); Protein Urine 1+ mg/dL (Negative)
[2021-11-27 10:19] LABS: Hyaline Casts Urine 15-19 /lpf; Mucus Urine Few /lpf; WBC Urine 0-3 /hpf
[2021-11-27 10:20] LABS: Add Urine Microscopic? YES; Blood Urine Trace-Intact (Negative)
--- NOTE | 2021-11-27 10:56 | PC.NURSE ---
[facility] accepted return to [facility] eta 11:30 Trip # [phone]
--- NOTE | 2021-11-27 11:28 | PC.NURSE ---
Attempted to call [facility] x2 with no answer.
--- NOTE | 2021-11-27 11:33 | PC.NURSE ---
Called and updated sister Rachel.
[2021-11-27 12:07] VITALS: BP 158/70; PULSE 62; RESP 16; O2SAT 100
== END 2021-11-27 12:09 ==
PROVIDERS: Emergency Provider General Practice
DX: G40.909 Epilepsy, unspecified, not intractable, without status epilepticus (principal); F03.90 Unspecified dementia, unspecified severity, without behavioral disturbance, psychotic disturbance, mood disturbance, and anxiety; E78.5 Hyperlipidemia, unspecified; I10 Essential (primary) hypertension; Z86.711 Personal history of pulmonary embolism; Z79.01 Long term (current) use of anticoagulants; R94.31 Abnormal electrocardiogram [ECG] [EKG]; M50.90 Cervical disc disorder, unspecified, unspecified cervical region; W19.XXXA Unspecified fall, initial encounter
CPT/HCPCS: 36415; 70450; 71045; 72125; 80053; 80164; 81001; 83735; 85025; 85610; 85730; 93005; 99284